=== PATIENT | male | born 1985 | race Caucasian/White ===

== ENCOUNTER 2019-07-15 09:37 | Emergency (ER) | payer OTHER ==
[~2019-07-15] VITALS: Ht 182.9 cm; Wt 97.5 kg
[2019-07-15 10:35] VITALS: BP 145/88
--- NOTE | 2019-07-15 10:37 | NUR ---
Patient discharged to home in stable condition. Written and verbal after care instructions given. Patient verbalizes understanding of instruction.
== END 2019-07-15 10:36 | disposition home or self-care (01) ==
LOC: ER 09:41
DX: F41.1 Generalized anxiety disorder (principal); R06.4 Hyperventilation; R42 Dizziness and giddiness; F32.9 Major depressive disorder, single episode, unspecified; E11.9 Type 2 diabetes mellitus without complications